=== PATIENT | female | born 1930 | race Hispanic/Latino ===

== ENCOUNTER 2018-01-01 11:59 | Outpatient (CLI) | payer SELFPAY | END 2018-01-01 12:00 | disposition home or self-care (01) | LOC: BICRAD 11:59 | PROVIDERS: ATTEND Nurse Practitioner Family | DX: R05 Cough (principal); M19.012 Primary osteoarthritis, left shoulder; M19.011 Primary osteoarthritis, right shoulder | CPT/HCPCS: 71046 ==

== ENCOUNTER 2018-01-26 09:41 | Outpatient (CLI) | payer OTHER | END 2018-01-26 09:42 | disposition home or self-care (01) | LOC: BICRAD 09:41 | PROVIDERS: ATTEND Nurse Practitioner Family | DX: R91.8 Other nonspecific abnormal finding of lung field (principal) | CPT/HCPCS: 71046 ==

== ENCOUNTER 2018-03-04 00:24 | Inpatient (IN) | payer SELFPAY ==
[2018-03-04] MEDS ORDERED: Lorazepam 2 MG/ML VIAL ONE (01:04)
[2018-03-04 01:09] LABS: #Basophils 0.1 thou/uL (0.0-0.2); #Eosinphils 0.1 thou/uL (0.0-0.7); #Lymphocytes 3.4 thou/uL (1.20-3.40); #Monocytes 1.1 thou/uL (0.11-0.59); #Neutrophils 10.7 thou/uL (1.40-6.50); %Basophils 0.4 % (0.0-1.0); %Eosinophils 0.7 % (0.0-10.0); %Lymphocytes 22.4 % (21.0-51.0); %Monocytes 6.8 % (0.0-10.0); %Neutrophils 69.7 % (42.0-75.0); Hemoglobin 10.4 g/dL (12.0-16.0); Mean Corpuscular HGB CONC 32.8 g/dL (32.0-36.0); Mean Corpuscular Hemoglobin 31.9 pg (27.0-31.0); Mean Corpuscular Volume 97.4 fl (81.0-99.0); Mean Platelet Volume 7.2 fL (7.4-10.4); Platelet Count 279 thou/uL (130-400); RBC Distribution Width 12.1 % (11.5-14.5); Red Blood Cell (RBC) Count 3.26 mill/uL (4.20-5.40); White Blood Cell (WBC) Count 15.3 thou/uL (4.8-10.8)
[2018-03-04 03:17] LABS: Reticulocyte Count 1.4 % (0.5-1.5)
[2018-03-04 03:26] LABS: Iron Binding Capacity, Total 228 mcg/dL (265-497)
[2018-03-04 03:27] LABS: Iron 53 ug/dL (50-170)
[2018-03-04] MEDS ORDERED: Dextrose 5 % And 0.9 % NaCl 1,000 ML IV SCH (04:45)
[2018-03-04 04:51] VITALS: BMI 29.6
[2018-03-04 08:26] LABS: Hemoglobin 7.5 g/dL (12.0-16.0); Platelet Count 197 thou/uL (130-400)
[2018-03-04] MEDS ORDERED: Prevnar 13-Val Conj/PF 0.5 ML SYRINGE IM ONE (09:00)
[2018-03-04] MEDS ORDERED: Pantoprazole 40 MG VIAL IVP SCH (09:00)
[2018-03-04] MEDS ORDERED: Acetaminophen 325 MG TAB PO PRN (09:03)
[2018-03-04] MEDS ORDERED: Acetaminophen 650 MG Suppository PR PRN (09:03)
--- NOTE | 2018-03-04 09:34 | RAD ---
FRONTAL VIEW ABDOMEN/KUB: Date: 03/04/18 INDICATION: Evaluation of nasogastric tube placement. FINDINGS: There is a catheter traversing the midline of the chest and terminating at the medial left upper abdo men. This terminates at the expected region of the medial portion of the gastric fundus. Slight advan cement would be beneficial. There is a nonspecific bowel gas pattern. IMPRESSION: Nasogastric tube terminating at the expected region of the medial gastric fundus. Side port likely pr ojects at distal esophagus. Recommend advancement and imaging follow-up. POS: MARKELL
[2018-03-04] MEDS: Pantoprazole 80 MG in Sodium Chloride 0.9% 100 ML IVP SCH ×2 (09:46→20:39)
[2018-03-04] MEDS: Dextrose 5 % And 0.9 % NaCl 1,000 ML IV SCH (09:47)
[2018-03-04 09:48] LABS: Hemoglobin 7.1 g/dL (12.0-16.0)
--- NOTE | 2018-03-04 11:26 | HP ---
REASON FOR ADMISSION: Gastrointestinal bleed, hematemesis, acute blood loss anemia. HISTORY OF PRESENTING ILLNESS: Please note majority of this history is obtained by talking to patient's son, daughter and grandson here at bedside. The patient apparently was complaining of abdominal pain, especially in the epigastric area from last two days. She had a lot of discomfort yesterday afternoon. The family prepared a home remedy which consisted of baking soda, lemon and water, which was given for her in the afternoon. Around 9:00 p.m. yesterday, she threw up a large amount of blood. The patient was taken to [facility] from where she was transferred here. On arrival here, patient has had a large bowel movement this morning. This was bloody per staff. Her initial hemoglobin at midnight was 10 grams and at 8:00 a.m. it is 7.5 grams now. Also, patient's systolic blood pressures are in the 90s at present. She is not complaining of any shortness of breath, chest pain, palpitations or PND. Patient responds well in Turkish. The patient admits to taking two tablets of Advil on Friday and 2 tablets of Aleve on Friday for chronic osteoarthritis. She takes these every 3-4 days or so. She also takes Zofran. The family at bedside mentions that for almost a month now, she has had loss of appetite. Per family, she has nauseated feeling off and on and has been taking Zofran p.r.n. basis. Also, a month back patient had back to back pneumonia and took antibiotics for 5 days. PAST MEDICAL AND SURGICAL HISTORY: Early dementia, right ankle surgery, had pneumonia a month back and took antibiotics for 5 days, osteoarthritis, questionable dyslipidemia, not on any medications. CURRENT MEDICATIONS: None. ALLERGIES: No known drug allergies. PERSONAL HISTORY: Does not abuse alcohol or drugs. No history of smoking. Lives with her daughter. She ambulates with a walker. FAMILY HISTORY: Mother at the age of 65 years from unknown cause. Father lived up to 90 and of old age. REVIEW OF SYSTEMS: The following complete review of systems was negative, unless otherwise mentioned in the HPI or below: Constitutional: Weight loss or gain, ability to conduct usual activities. Skin: Rash, itching. Eyes: Double vision, pain. ENT/Mouth: Nose bleeding, neck stiffness, pain, tenderness. Cardiovascular: Palpitations, dyspnea on exertion, orthopnea. Respiratory: Shortness of breath, wheezing, cough, hemoptysis, fever or night sweats. Gastrointestinal: Poor appetite, abdominal pain, heartburn, nausea, vomiting, constipation, or diarrhea. Genitourinary: Urgency, frequency, dysuria, nocturia. Musculoskeletal: Pain, swelling. Neurologic/Psychiatric: Anxiety, depression. Allergy/Immunologic: Skin rash, bleeding tendency. PHYSICAL EXAMINATION: GENERAL: The patient is an 87-year-old female who is currently not in any acute distress. VITAL SIGNS: Blood pressure 142/67, pulse 120 per minute on arrival, respiratory rate 20 per minute, temperature 97.5 degrees Fahrenheit, and saturating 98% on room air. NECK: Supple, no elevated JVD. EYES: Extraocular muscles intact. Pupils reacting to light. ORAL CAVITY: Mucous membranes are dry. No exudates or congestion. CARDIOVASCULAR SYSTEM: S1, S2 heard. Regular rhythm. RESPIRATORY SYSTEM: Air entry 1+ bilateral. Scattered rhonchi plus no rales. ABDOMEN: Soft, bowel sounds heard. No tenderness, rigidity or guarding. EXTREMITIES: No peripheral edema or calf tenderness. VASCULAR SYSTEM: Peripheral pulses 1+ bilateral, no ischemic ulcerations or gangrene. CENTRAL NERVOUS SYSTEM: No gross focal deficits seen. The patient moves all 4 extremities. PSYCHIATRIC SYSTEM: No obvious hallucinations or delusions. IMAGING DATA AND LABORATORY DATA: EKG done shows normal sinus rhythm at 97 beats per minute with poor R-wave progression. Stool occult blood is positive. Serum iron is 53, ferritin 200, H&H is 10 and 31 at 12:00 midnight and 7.5 and 23 at 8:00 a.m., platelet count 279. White count of 15, PT/INR 14 and 1.1, PTT 27, BUN 40, creatinine 0.6, serum glucose 159, AST 53, ALT 49, alkaline phosphatase 283, and albumin is 3.1. CLINICAL IMPRESSION AND PLAN: The patient will be admitted to [facility] for acute blood loss anemia, gastrointestinal bleed with hematemesis. She will be on Protonix drip, D5 NS at 50 mL per hour. The patient is kept n.p.o. for possible upper endoscopy this morning. Serial H&H will be obtained. The patient has had significant drop in her hemoglobin and is slightly hypotensive at present and we will give 1 unit of packed cell transfusion given her age of 87 years to prevent adverse events. Given full updates to patient and her family here at bedside. Code status is FULL. Power of tromper is her daughter , Ms. Powers. We will continue to closely monitor her in IMCU. Serial H&H will be obtained and if needed, she will be transfused to maintain hemoglobin of 7 grams as long as she is hemodynamically stable. PATRICIAD
--- NOTE | 2018-03-04 14:08 | CON ---
DATE OF CONSULTATION: 03/04/2018 CHIEF COMPLAINT: Hematemesis. HISTORY: Mrs. Manning is an 87-year-old female from [place], who was brought to the ER last night af ter having an episode of hematemesis at home. Patient is Macanese-speaking only, and translation was obtained through the grandson. Reportedly, over the last month, she has been feeling anorexic with p oor intake. She also has a complaint of having nonspecific, non-localizing abdominal pain. Despite having reduced appetite, she has not lost any weight. Over the last 2 weeks, she began having episod ic nausea. Last night, she had an acute onset of hematemesis at 9:00 p.m. characterized as mostly re d blood along with clots and some small coffee ground according to the daughter. Currently, she kenney es having abdominal pain. Since admission, she had an episode of bowel movement to consist of old bl ood and clots. Currently, she denies having abdominal pain or any nausea. Her vitals have remained stable. However, her blood count showed a drop in hemoglobin from 10.5 down to 7.5. Patient has not had any previous GI bleed. According to the grandson, she has been given Advil and A leve periodically for arthritic pain. Amount of usage is unknown. PAST MEDICAL HISTORY: 1. No medical illness such as hypertension or diabetes. 2. Right foot surgery many years ago from a broken foot, otherwise no other surgery. MEDICATIONS AT HOME: Include, 1. Ondansetron 4 mg as needed, given by [facility] within the last month. 2. No other prescription medication. ALLERGIES: None. SOCIAL HISTORY: The patient lives with her daughter and son in [place]. She has no tobacco or alco hol usage. FAMILY HISTORY: No known family history of GI problem, liver disease, or GI malignancy. REVIEW OF SYSTEMS: Grandson reports that patient has had chronic dizziness for many years. Otherwis e, a 10-point review of systems did not show any pertinent positive or negative. PHYSICAL EXAMINATION: VITAL SIGNS: Temperature is 97.4, blood pressure 101/39, pulse of 87. GENERAL: She is alert, does not appear in any distress. HEENT EXAM: Shows anicteric sclerae. Oropharynx clear. NECK EXAM: Supple, no adenopathy. CARDIOVASCULAR EXAM: Shows normal S1 and S2, regular rate and rhythm. CHEST Exam: Poor excursion. Bilateral breath sounds, no adventitious sounds. ABDOMEN: Mildly protuberant. No palpable mass or organomegaly. She has good bowel sounds. No tend erness. EXTREMITIES EXAM: Shows no edema. LABORATORY DATA: INR is 1.1, PTT 27.7. WBC is 15.3; hemoglobin on admission was 10.4, currently is 7.5; platelet count of 197. Electrolytes within normal range, creatinine 0.67, BUN of 40, bilirubin 0.8, AST 53, ALT 49. ASSESSMENT: 1. Evidence of acute upper gastrointestinal bleed, characterized as hematemesis last night and episo de of hematochezia overnight with 2 gram salt in hemoglobin. She remains hemodynamically stable. Encinas spect peptic ulcer disease. No physical stigmata of cirrhosis and the risk factor for chronic liver disease 2. Lower gastrointestinal bleed is unlikely. 3. Anemia of acute blood loss. PLAN: 1. Continue IV Protonix 40 mg every day, as ordered. 2. Start transfusion. 3. Upper endoscopy to elucidate source of bleeding to control if necessary. Indications of procedure were discussed with family. All questions answered. We will proceed.
--- NOTE | 2018-03-04 14:21 | OP ---
DATE OF PROCEDURE: 03/04/2018 PROCEDURE: Esophagogastroduodenoscopy to control hemorrhage. PHYSICIAN: Javier Ford M.D. ANESTHESIA: Pain medications given by Anesthesiology Department. PREPROCEDURE DIAGNOSES: 1. Upper gastrointestinal bleed characterized as hematemesis and hematochezia. 2. Anemia of acute blood loss. POSTPROCEDURE DIAGNOSES: A 1.5 x 2 cm duodenal bulb ulcer with visible vessel and bleeding from dist al edge. PROCEDURE IN DETAIL: A written consent was obtained prior to procedure. After adequate sedation, th e forward-viewing endoscope was advanced down the stomach under direct vision. The stomach was irrig ated and old blood was washed out. The antrum, body, fundus, and cardia appeared normal. No source of bleeding was identified from the stomach. Upon entering the pylorus, copious fresh blood was seen along with clots. A 1.5 x 2 cm duodenal bulb ulcer was seen near the second portion. There was a v isible vessel with oozing of fresh blood from the distal edge. A total of 4 mL of 1:10,000 epinephri ne solution was injected around the ulcer base. Using 10-[place] BICAP cautery, cauterization was per formed over the crater including the vessel. Also, the cauterization was performed in the distal edg e where the bleeding was occurred. There was good hemostasis. The second portion of duodenum appear ed normal. The inspection of the esophagus was made on withdrawal. The esophagus appeared normal. The GE junction was located at 40 cm. ASSESSMENT: Bleeding duodenal bulb ulcer with visible vessel, status post epinephrine injection and BICAP cauterization with good hemostasis. PLAN: 1. Continue with pantoprazole 40 mg every day. 2. Serial blood count monitoring. 3. We will check H. pylori serology.
[2018-03-04] MEDS ORDERED: Lidocaine 1% PF 5 ML VIAL ONE (15:06)
[2018-03-04] MEDS ORDERED: PHENYLEPHRINE-NS 100 MCG/ML 10 ML SYRINGE ONE (15:06)
[2018-03-04] MEDS ORDERED: PROPOFOL 200 MG/20 ML VIAL ONE (15:06)
[2018-03-04 15:31] LABS: Hemoglobin 8.2 g/dL (12.0-16.0)
[2018-03-04 21:28] LABS: Hemoglobin 7.1 g/dL (12.0-16.0)
[2018-03-05] MEDS ORDERED: Diltiazem 125 MG in Sodium Chloride 0.9% 100 ML IVPB SCH (00:45)
--- NOTE | 2018-03-05 00:46 | PDOC.EVN ---
Event Note - Event Note Event Note: RN called - Pt in Afib with RVR. Will start Cardizem drip. Update - BP dropped with Cardizem. Will try Digoxin.
[2018-03-05] MEDS ORDERED: Digoxin 0.5 MG/2 ML AMP SLOW IVP SCH ×2 (01:45→11:45)
--- NOTE | 2018-03-05 04:52 | CON ---
DATE OF CONSULTATION: 03/04/2018 HISTORY OF PRESENT ILLNESS: Ms. Manning is an 87-year-old female. She presented with gastrointestinal bleeding. She was seen by Dr. Ford and underwent endoscopy revealing a 1.5 x 2 cm duodenal bulb ulcer with visible vessel. This was cauterized. She had no external signs of bleeding since she is in the Intermediate Care Unit, hence the consultation. PAST MEDICAL HISTORY: Remarkable for; 1. Dementia. 2. History of pneumonia. 3. Degenerative arthritis. 4. History of lipid disorder. 5. History of ankle surgery in the past. SOCIAL HISTORY: She is a nonsmoker, nondrinker. She does not use drugs. She lives with her daughter. She is ambulatory. She does have a history of dementia. FAMILY HISTORY: Non contributory ALLERGIES: She has no drug allergies. MEDICATIONS: She is on no medications prior to admission. REVIEW OF SYSTEMS: Not accurately obtainable because of her dementia. She told me she felt fine. PHYSICAL EXAMINATION: VITAL SIGNS: She is afebrile, heart rate 94, respiratory rate is 22, oximetry is 100% on room air, blood pressure 103/53. HEENT: Pupils are equal. Sclerae are anicteric. NECK: Supple. GENERAL: Her appearance is appropriate for age. LUNGS: Clear. HEART: Regular rhythm. ABDOMEN: Nontender. EXTREMITIES: Without clubbing, cyanosis, or edema. She moves all 4 extremities equally. NEUROLOGIC: Grossly nonfocal. LABORATORY DATA: Hemoglobin was 10.4 at midnight was 7.5 at 8:00 this morning and its then 7.1, 8.2 and 7.1 with serial hemoglobins throughout the day. IMPRESSION: Gastrointestinal blood loss secondary to duodenal bulb ulcer with visible vessel. Hopefully, her bleeding has stabilized. If she does well overnight, she could be transferred out of the Critical Care Unit. CODE STATUS: Because of her age definitely needs to be addressed. This is a 50-minute consult with greater than 50% of the time which was spent on the unit coordinating care. LEIGHTON
[2018-03-05 05:11] LABS: Hemoglobin 6.7 g/dL (12.0-16.0); Platelet Count 167 thou/uL (130-400)
[2018-03-05 05:29] LABS: ALT (SGPT) 24 U/L (8-55); AST (SGOT) 25 U/L (5-34); Albumin 2.4 g/dL (3.4-4.8); Alkaline Phosphatase 153 U/L (40-150); Anion Gap 9 mmol/L (10-20); BUN (Urea Nitrogen) 32 mg/dL (9.8-20.1); Bilirubin, Total 0.4 mg/dL (0.2-1.2); Calc. Creatinine Clearance 68 mL/min (70-130); Calcium 7.3 mg/dL (7.8-10.44); Carbon Dioxide 21 mmol/L (23-31); Chloride 111 mmol/L (98-107); Estimated GFR-MDRD 83; Globulin 2.3 g/dL (2.4-3.5); Glucose 153 mg/dL (83-110); Magnesium 1.9 mg/dL (1.6-2.6); Phosphorus 3.2 mg/dL (2.3-4.7); Protein, Total 4.7 g/dL (6.0-8.3); Sodium 137 mmol/L (136-145)
[2018-03-05] MEDS ORDERED: Ondansetron HCl/PF 4 MG/2 ML Vial IVP PRN (09:51)
[2018-03-05] MEDS ORDERED: Promethazine HCl 25 MG/ML VIAL IM PRN (09:51)
[2018-03-05] MEDS ORDERED: Promethazine HCl 25 MG/ML VIAL SLOW IVP PRN (09:51)
--- NOTE | 2018-03-05 10:03 | OP ---
DATE OF PROCEDURE: 03/05/2018 PROCEDURE: Esophagogastroduodenoscopy. PREOPERATIVE DIAGNOSIS: Gastrointestinal bleed. Ms. Manning passed liquidy red stool this morning and had another drop in her hemoglobin. Follow up E GD is performed to evaluate for active bleeding from the ulcer that was cauterized yesterday. PROCEDURE IN DETAIL: Informed consent was obtained. The patient was sedated with total intravenous anesthesia. The bite block was placed and the endoscope was advanced easily to the second portion of the duodenum and retroflexion was performed in the stomach. The esophagus had a slight ring in the distal esophagus. There was a small hiatal hernia present. The stomach had a small shallow ulcer in the antrum just proximal to the pylorus. There was a large ulcer on the inferior wall of the first portion of the duodenum which is a site that was cauterized by Dr. Ford yesterday. There is no visib le vessel to indicate repeat intervention. There is no active bleeding. There is no blood in the st omach or duodenum to indicate recent bleeding. There are multiple flat red spots; however, again too extensive in an area to just cauterize diffusely and no specific area to indicate that it would be a higher risk of bleeding than any of the others. Overall appears to be healing. IMPRESSION: 1. Large ulcer in the inferior wall of the first portion of the duodenum. There is no focal vessel to cauterize. There is no active bleeding and no blood in the stomach or small bowel to indicate imm ediate recent bleed. The ulcer appears to be healing overall. 2. Small shallow ulcer just proximal to the pylorus. 3. Small hiatal hernia with a slight ring in the distal esophagus. RECOMMENDATIONS: 1. Continue proton pump inhibitor drip for 72 hours. 2. Clear liquid diet today. If she has no further overt bleeding and her hemoglobin is stable tomor row, then we can advance her diet further.
--- NOTE | 2018-03-05 11:07 | PDOC.PN ---
- Subjective Encounter Start Date: 03/05/18 Encounter Start Time: 10:20 Subjective: no abd pain or nausea -: had a large liq bloody stool this am - Objective Resuscitation Status: Resuscitation Status FULL:Full Resuscitation MAR Reviewed: Yes Vital Signs & Weight: Vital Signs (12 hours) Temp Pulse Pulse Resp BP BP Pulse Ox 03/05/18 07:45 98.8 F 97 20 102/41 L 100 03/05/18 07:06 97.9 F 100 20 99/42 L 100 03/05/18 04:17 88/49 L 03/05/18 03:46 98.0 F 133 H 20 100 03/05/18 03:05 83/46 L 03/05/18 02:07 160 H 81/73 L 03/05/18 01:52 108 H 03/05/18 01:33 88/58 L 03/04/18 23:44 98.4 F 108 H 21 H 121/55 L 100 Weight Weight 163 lb 3.2 oz I&O: 03/04/18 03/05/18 03/06/18 06:59 06:59 06:59 Intake Total 150 350 0 Output Total 400 Balance -250 350 0 Result Diagrams: 03/05/18 04:02 03/05/18 04:02 Phys Exam - Physical Examination HEENT: PERRLA, sclera anicteric Neck: no JVD, supple Respiratory: no wheezing, no rales Cardiovascular: RRR, no significant murmur Gastrointestinal: soft, non-tender, positive bowel sounds Musculoskeletal: no edema, pulses present Neurological: non-focal, moves all 4 limbs Dx/Plan (1) GI bleed Code(s): K92.2 - GASTROINTESTINAL HEMORRHAGE, UNSPECIFIED Status: Acute Qualifiers: GI bleed type/associated pathology: duodenal ulcer Qualified Code(s): K26.4 - Chronic or unspecified duodenal ulcer with hemorrhage (2) Duodenal ulcer Status: Acute (3) Acute blood loss anemia Code(s): D62 - ACUTE POSTHEMORRHAGIC ANEMIA Status: Acute (4) Afib Code(s): I48.91 - UNSPECIFIED ATRIAL FIBRILLATION Status: Acute Qualifiers: Atrial fibrillation type: paroxysmal Qualified Code(s): I48.0 - Paroxysmal atrial fibrillation (5) Dyslipidemia Code(s): E78.5 - HYPERLIPIDEMIA, UNSPECIFIED Status: Chronic (6) Dementia Code(s): F03.90 - UNSPECIFIED DEMENTIA WITHOUT BEHAVIORAL DISTURBANCE Status: Chronic Qualifiers: Dementia type: Alzheimer's disease Alzheimer's disease onset: unspecified onset Dementia behavioral disturbance: without behavioral disturbance Qualified Code(s): G30.9 - Alzheimer's disease, unspecified; F02.80 - Dementia in other diseases classified elsewhere without behavioral disturbance; F02.80 - Dementia in other diseases classified elsewhere without behavioral disturbance; F02.80 - Dementia in other diseases classified elsewhere without behavioral disturbance - Plan to recieve 2 nd unit of prbc today, Hb of 6.7g this am -: repeat egd no active bleeding -: may give lasix if she get vol overloaded -: d/w son at bedside, he will d/w his sister about code status -: afib in sinus now, echo * . continue protonix drip x 72hrs per GI advice. Review of Systems - Medications/Allergies Allergies/Adverse Reactions: Allergies Allergy/AdvReac Type Severity Reaction Status Date / Time No Known Drug Allergies Allergy Verified 03/04/18 05:31 Medications: Current Medications Acetaminophen (Tylenol) 650 mg PO Q4H PRN PRN Reason: Headache/Fever or Pain Acetaminophen (Tylenol) 650 mg ND Q4H PRN PRN Reason: Headache/Fever or Pain Fentanyl (Pacu-Sublimaze) 50 mcg SLOW IVP Q10MIN PRN PRN Reason: Moderate to Severe Pain (6-10) Stop: 03/05/18 12:51 Dextrose/Sodium Chloride (D5 0.9% Ns) 1,000 mls @ 50 mls/hr IV .Q20H LINN Last Admin: 03/05/18 00:00 Dose: 1,000 mls Pantoprazole Sodium 80 mg/ (Sodium Chloride) 100 mls @ 10 mls/hr IVP INF LINN Last Admin: 03/04/18 20:39 Dose: 100 mls Diltiazem HCl 125 mg/ Sodium (Chloride) 125 mls @ 5 mls/hr IVPB INF LINN; 5 MG/ HR PRN Reason: Protocol Last Admin: 03/05/18 01:13 Dose: 125 mls Ondansetron HCl (Pacu-Zofran) 4 mg IVP ONE PRN PRN Reason: Nausea/Vomiting Stop: 03/05/18 12:51 Promethazine HCl (Pacu-Phenergan) 6.25 mg SLOW IVP ONE PRN PRN Reason: Nausea/Vomiting Stop: 03/05/18 12:51 Promethazine HCl (Pacu-Phenergan) 6.25 mg IM ONE PRN PRN Reason: Nausea/Vomiting Stop: 03/05/18 12:51 Sodium Chloride (Flush - Normal Saline) 10 ml IVF PRN PRN PRN Reason: Saline Flush
--- NOTE | 2018-03-05 12:22 | CON ---
DATE OF CONSULTATION: 03/05/2018 INDICATION FOR CONSULTATION: This is an 87-year-old female with episode of atrial fibrillation. HISTORY OF PRESENT ILLNESS: This very pleasant 87-year-old female was admitted after a large GI blee d. Her hemoglobin dropped from 10.4 to 6.7. She was having nausea, vomiting, hematemesis and also h ematochezia. She underwent an EGD and apparently had cauterization of an ulcer, was taken back down earlier again today for a possible repeat bleed, but no significant bleeding was noted in the gastric segments and also there was no further bleeding noted. She has had no previous cardiac history. Ea rlier this morning, she developed atrial fibrillation with rapid ventricular response, was given dilt iazem. The pressure decreased and this was stopped and then she was placed on digoxin, was given 1.2 5 IV of digoxin and then converted back to sinus rhythm and has remained in sinus rhythm. At time sh e was in atrial fibrillation she did have some EKG changes in the inferior lateral leads compatible w ith possible ischemia and given her age, it would not be surprising if she did not have coronary dise ase. She was unable to tolerate the diltiazem, but this may be due to volume loss with the severe bl ood loss with a hemoglobin of 6.7, but she also had EKG changes which also could be due to the severe anemia or due to underlying coronary artery disease. At this time until and echo is still pending a nd we will need to see the echocardiogram prior to initiating other antiarrhythmic medications, but c ertainly a low dose beta melvin could be in order. PAST MEDICAL HISTORY: Significant for right ankle fracture about 10 years ago and she has dyslipidem ia. She denies any history of hypertension or diabetes. No early family history of heart disease. SOCIAL HISTORY: She is a . She has no alcohol or tobacco abuse. She had 5 children. ALLERGIES: No known drug allergies. REVIEW OF SYSTEMS: According to the family. She walks with a walker, otherwise she has been extreme ly healthy and takes minimal medications. Denied any HEENT problems. GI, or pulmonary problems or neurological problems. PHYSICAL EXAMINATION: GENERAL: Reveals an elderly female. VITAL SIGNS: Blood pressure 129/46, heart rate is in the 90s. She is in sinus rhythm at this time. She is afebrile. HEENT: Shows the head to be normocephalic and atraumatic. Carotid pulses are present. I did not he ar any significant bruits. CHEST: Clear to auscultation. There were no rales, rhonchi or wheezing. CARDIOVASCULAR: Exam at this time reveals a regular rate and rhythm. I did not hear any significant murmurs, heaves, thrills, bruits or rubs. ABDOMEN: Soft, positive bowel sounds are present. EXTREMITIES: Showed no clubbing, cyanosis or edema. Pedal pulses are difficult to palpate, but popl iteal pulses are normal. SKIN: Warm and dry. NEUROLOGIC: The patient appears to be intact. She does speak only Danish, but her grandson was luis ilable and was present in the room today and he speaks very fluent Georgian and he was used as a trans lator. LABORATORY: Shows the hemoglobin on admission to be 10.4 and then this morning at 4:[address] opped down to 6.7 as well as hematocrit 31.8 on admission, dropped down to 20.3. WBC was 15.3 and a platelet count was 167. Her sodium was 137, BUN 32, creatinine 0.67, blood sugar was 153. Liver fun ction showed an alkaline phosphatase of 153. IMPRESSION: 1. New onset of atrial fibrillation was likely brought on by stress. She may have underlying garcia ry artery disease due to EKG changes that were noted. However, she could have the EKG changes simply due to the anemia that she has suffered with the tachycardia associated and does not necessarily ind icate coronary artery disease, but given her age, this may be a possibility. We will continue to fol low this. She is not a candidate for bypass or for any type of intervention at this time. When she becomes more stable, we can always consider stress testing in this lady if she is agreeable to underg o further evaluation should the stress test be abnormal. She denies any chest pain. She has not had any problems in the past and may do quite well. As far as her atrial fibrillation, she is on digoxi n at this time and we can consider starting her on low dose beta melvin now that she is starting p.o . medications or low dose of diltiazem and hopefully will try to avoid other more potent antiarrhythm ic medications. 2. Elevated blood sugar. This may be due to IV. However, she may be a diabetic, which has been und iagnosed. This will be dealt with by the primary care service. 3. Anemia. We will also need to continue to follow this, would hope for hemoglobin of around 10. S he may need further transfusions in order to at least maintain a hemoglobin of 8. 4. Hyperlipidemia. She can resume her statin medications as soon as she is taking p.o. I will be more than happy to continue to follow the patient with you, but at this time, she appears t o be stable from a cardiac standpoint.
[2018-03-05] MEDS: Digoxin 0.5 MG/2 ML AMP SLOW IVP SCH ×3 (12:48→23:04)
[2018-03-05] MEDS ORDERED: Lidocaine 1% PF 5 ML VIAL ONE (14:31)
[2018-03-05] MEDS ORDERED: PROPOFOL 200 MG/20 ML VIAL ONE (14:31)
[2018-03-05 20:51] LABS: Hemoglobin 8.2 g/dL (12.0-16.0)
[2018-03-05] MEDS: Dextrose 5 % And 0.9 % NaCl 1,000 ML IV SCH ×2 (21:45)
[2018-03-06] MEDS: Pantoprazole 80 MG in Sodium Chloride 0.9% 100 ML IVP SCH ×2 (04:05→15:14)
[2018-03-06] MEDS ORDERED: Diltiazem 125 MG in Sodium Chloride 0.9% 100 ML IVPB SCH (04:45)
[2018-03-06 06:12] LABS: Hemoglobin 8.1 g/dL (12.0-16.0); Platelet Count 157 thou/uL (130-400)
[2018-03-06 06:42] LABS: Anion Gap 6 mmol/L (10-20); BUN (Urea Nitrogen) 15 mg/dL (9.8-20.1); Calc. Creatinine Clearance 70 mL/min (70-130); Calcium 7.6 mg/dL (7.8-10.44); Carbon Dioxide 24 mmol/L (23-31); Chloride 112 mmol/L (98-107); Estimated GFR-MDRD 87; Glucose 129 mg/dL (83-110); Magnesium 1.8 mg/dL (1.6-2.6); Phosphorus 3.4 mg/dL (2.3-4.7); Potassium 3.5 mmol/L (3.5-5.1); Sodium 138 mmol/L (136-145)
[2018-03-06] MEDS: Digoxin 0.125 MG TAB PO SCH (08:15)
--- NOTE | 2018-03-06 12:02 | PDOC.CTH ---
Cardiology Progress Note - Subjective The pt seen and examined. No overnight events. No cardiac complaints. She speaks Ukrainian only. Daughter is at bedside. - Objective Vital Signs Temp Pulse Resp BP Pulse Ox 03/06/18 08:15 83 03/06/18 08:00 98.9 F 83 24 H 99 03/06/18 07:00 98.9 F 124 H 24 H 113/71 98 03/06/18 03:38 98.2 F 70 16 100/36 L 96 Weight 163 lb 14.4 oz 03/05/18 03/06/18 03/07/18 06:59 06:59 06:59 Intake Total 350 1940 480 Balance 350 1940 480 - Physical Examination Lungs: CTA Heart: RRR Abdomen: soft Extremities: other: (No edema) - Telemetry Telemetry Rhythm: SR 70s - Labs Result Diagrams: 03/06/18 05:45 03/06/18 05:45 - Assessment/Plan 1. Afib and Aflutter with RVR - Back to AFib and new-onset of AFlutter from 0400 -0700 on 03/06/18. The pt converted back to SR with Diltiazem 2.5mg/h. On Digoxin 0.125mg PO daily. Not on any OAC or Lovenox due to Hx of GI bleed. EP consult was ordered for Aflutter. 2. GI bleed 2ndary to duodenal ulcer - managed by GI 3. Anemia 2ndary to GI bleed - Hgb 8.1 from 6.7 after 2 units of PRBC Tx. 4. Dementia - Family at bedside MAR reviewed Review of Systems - Review of Systems Constitutional: reports: no symptoms reported EENTM: reports: no symptoms reported Respiratory: reports: no symptoms reported Cardiac (ROS): reports: no symptoms reported ABD/GI: reports: no symptoms reported : reports: no symptoms reported Musculoskeletal: reports: no symptoms reported
--- NOTE | 2018-03-06 15:38 | PDOC.PN ---
- Subjective Encounter Start Date: 03/06/18 Encounter Start Time: 11:25 Subjective: awake, no sob or palp -: no charlene bleeding or hematemesis - Objective Resuscitation Status: Resuscitation Status FULL:Full Resuscitation MAR Reviewed: Yes Vital Signs & Weight: Vital Signs (12 hours) Temp Pulse Resp BP Pulse Ox 03/06/18 12:17 98.0 F 76 20 105/50 L 03/06/18 08:15 83 03/06/18 08:00 98.9 F 83 24 H 99 03/06/18 07:00 98.9 F 124 H 24 H 113/71 98 03/06/18 03:38 98.2 F 70 16 100/36 L 96 Weight Weight 163 lb 14.4 oz I&O: 03/05/18 03/06/18 03/07/18 06:59 06:59 06:59 Intake Total 350 1940 480 Balance 350 1940 480 Result Diagrams: 03/06/18 05:45 03/06/18 05:45 Phys Exam - Physical Examination HEENT: PERRLA, moist MMs Neck: no JVD, supple Respiratory: no wheezing, no rales Cardiovascular: RRR, no significant murmur Gastrointestinal: soft, non-tender, positive bowel sounds Musculoskeletal: no edema, pulses present Neurological: non-focal, moves all 4 limbs Psychiatric: normal affect, A&O x 3 Dx/Plan (1) GI bleed Code(s): K92.2 - GASTROINTESTINAL HEMORRHAGE, UNSPECIFIED Status: Acute Qualifiers: GI bleed type/associated pathology: duodenal ulcer Qualified Code(s): K26.4 - Chronic or unspecified duodenal ulcer with hemorrhage (2) Duodenal ulcer Status: Acute (3) Acute blood loss anemia Code(s): D62 - ACUTE POSTHEMORRHAGIC ANEMIA Status: Acute (4) Afib Code(s): I48.91 - UNSPECIFIED ATRIAL FIBRILLATION Status: Acute Qualifiers: Atrial fibrillation type: paroxysmal Qualified Code(s): I48.0 - Paroxysmal atrial fibrillation (5) Dyslipidemia Code(s): E78.5 - HYPERLIPIDEMIA, UNSPECIFIED Status: Chronic (6) Dementia Code(s): F03.90 - UNSPECIFIED DEMENTIA WITHOUT BEHAVIORAL DISTURBANCE Status: Chronic Qualifiers: Dementia type: Alzheimer's disease Alzheimer's disease onset: unspecified onset Dementia behavioral disturbance: without behavioral disturbance Qualified Code(s): G30.9 - Alzheimer's disease, unspecified; F02.80 - Dementia in other diseases classified elsewhere without behavioral disturbance; F02.80 - Dementia in other diseases classified elsewhere without behavioral disturbance; F02.80 - Dementia in other diseases classified elsewhere without behavioral disturbance - Plan on protonix drip -: digoxin low dose po, in sinus now -: h/h around 06/18 -: has dark stools from prior bleed, no fresh blood -: tx to tele, on clear liq diet, echo is pending * . Review of Systems - Medications/Allergies Allergies/Adverse Reactions: Allergies Allergy/AdvReac Type Severity Reaction Status Date / Time No Known Drug Allergies Allergy Verified 03/04/18 05:31 Medications: Current Medications Acetaminophen (Tylenol) 650 mg PO Q4H PRN PRN Reason: Headache/Fever or Pain Last Admin: 03/06/18 00:43 Dose: 650 mg Acetaminophen (Tylenol) 650 mg [place] Q4H PRN PRN Reason: Headache/Fever or Pain Digoxin (Lanoxin) 0.125 mg PO QAM [facility] Last Admin: 03/06/18 08:15 Dose: 0.125 mg Dextrose/Sodium Chloride (D5 0.9% Ns) 1,000 mls @ 50 mls/hr IV .Q20H [facility] Last Admin: 03/05/18 21:45 Dose: 1,000 mls Pantoprazole Sodium 80 mg/ (Sodium Chloride) 100 mls @ 10 mls/hr IVP INF [facility] Last Admin: 03/06/18 15:14 Dose: 100 mls Diltiazem HCl 125 mg/ Sodium (Chloride) 125 mls @ 0 mls/hr IVPB INF [facility]; Titrate PRN Reason: Protocol Sodium Chloride (Flush - Normal Saline) 10 ml IVF PRN PRN PRN Reason: Saline Flush
[2018-03-06] MEDS ORDERED: Diltiazem 125 MG in Sodium Chloride 0.9% 100 ML IVPB PRN (18:26)
[2018-03-06] MEDS: Dextrose 5 % And 0.9 % NaCl 1,000 ML IV SCH (18:28)
--- NOTE | 2018-03-06 18:30 | PRG ---
DATE OF SERVICE: 03/06/2018 SUBJECTIVE: Nursing reports that Ms. Manning did pass some dark red blood 3 times today. She has had no abdominal pain and is tolerated clear liquid diet. OBJECTIVE: VITAL SIGNS: Temperature 98.8, pulse 84, blood pressure 166/60. GENERAL: She is in no acute distress, awake and alert. LUNGS: Clear to auscultation bilaterally. HEART: S1, S2. ABDOMEN: Soft, nontender, nondistended. Bowel sounds are present. EXTREMITIES: No lower extremity edema. LABORATORY DATA: Hemoglobin is 8.1, stable from last night where she did get a couple of units betwe en yesterday morning and yesterday evening. IMPRESSION: Anemia of acute gastrointestinal blood loss secondary to a large duodenal ulcer. Follow up endoscopy yesterday showed no ongoing active bleeding or visible vessel to cauterize. Unfortunate ly, she still pass some red stools today, but her hemoglobin is stable. RECOMMENDATIONS: 1. Continue proton pump inhibitor drip for 72-hour course. 2. We will recheck her hemoglobin in the morning and transfuse as necessary.
--- NOTE | 2018-03-06 20:59 | CON ---
DICTATED BY: Katie Tovar, Nurse Practitioner dictating as scribe for Dr. Salazar Patel. DATE OF CONSULTATION: 03/06/2018 CONSULTING PHYSICIAN: Dr. Skye Sosa. REASON FOR CONSULTATION: Atrial arrhythmias. HISTORY OF PRESENT ILLNESS: Ms. Manning is a very pleasant elderly female, who was admitted for sever e GI bleed. She was having nausea and was vomiting blood, as well as noting blood in her stool. No hospitalized, her hemoglobin acutely dropped from 10.4-6.7. With EGD and ulcer was identified and ca uterized, but on further evaluation, no additional bleeding was found. She does not have a history s ignificant for cardiac problems. During the past hospitalization, she was found to be in atrial fibr illation with RVR and was given diltiazem; however, became hypertensive and prompting in the diltiaze m to be stopped and she was placed on 0.125 mg of diltiazem. She has stabilized since then and thuan smith has had a recurrence of her atrial fibrillation with RVR into atrial flutter with RVR, at wh ich point she was placed back on low dose diltiazem at 2.5 mg per hour. She has been tolerating this well, and is currently maintaining a sinus rhythm. She reports that she is feeling okay and she coppola s not have any heart racing, palpitations, chest pain, or pressure. She has not had any syncope or n ear syncopal episodes. She has not had any stroke or stroke-like symptoms. PAST MEDICAL HISTORY: 1. Dyslipidemia. 2. Right ankle fracture. FAMILY HISTORY: Negative for early onset coronary artery disease, sudden cardiac or arrhythmia s. SOCIAL HISTORY: Negative for alcohol, tobacco, or drug use. She is . She has 5 children. ALLERGIES: No known allergies. HOME MEDICATIONS: Zofran 4 mg as needed p.o. and meclizine 25 mg daily as needed. REVIEW OF SYSTEMS: Negative for heart racing, palpitation, chest pain, pressure, syncope, near synco pe, stroke, or stroke-like symptoms. She denies any heart failure symptoms including swelling of the extremities, shortness of breath, progressive fatigue or dyspnea on exertion. Seemed very healthy a nd independent, but does walk with a walker. Positive for recent nausea, vomiting, blood in her vomi t as well as blood in her stool, although this is not happened not currently a problem today. PHYSICAL EXAMINATION: VITAL SIGNS: Most recent vital signs 98.0 degrees Fahrenheit, pulse is 76, respirations are 20, oxyg en saturation 99% on room air, and blood pressure 105/50. GENERAL: This is an elderly female in no acute distress. She is hard of hearing, but alert and oriented and her affect is appropriate. She is normocephalic, atraumatic. Her thyroid is nonpa lpable. NECK: Carotid bruits are not auscultated. LUNGS: Clear to auscultation bilaterally without wheezes, crackles, or rhonchi. HEART: Currently regularly regular without murmur, rub, or gallop. PMI is nondisplaced. ABDOMEN: Benign, but positive bowel sounds throughout and no palpable masses or hepatosplenomegaly. EXTREMITIES: Warm and dry to touch without clubbing, cyanosis, or edema. NEUROLOGIC: Exam of cranial nerves II-XII is intact and nonfocal. Gait was not assessed. DATABASE: Review of telemetry and 12-lead EKGs. Which is currently maintaining normal sinus rhythm w ith controlled ventricular rates. However, episodes of atrial fibrillation with RVR as well as atypi gaurav atrial flutter with RVR had been seen. HEMATOLOGY: Hemoglobin 8.1, hematocrit 23.9, platelet count 157. Chemistry from today, sodium 138, potassium 3.5, chloride 112, carbon dioxide 24, BUN is 15, creatinine is 0.64, magnesium 1.8, and nba sphorus 3.4. Glucose has been elevated greater than 120 (no history of diabetes). IMPRESSION: 1. New onset of atrial fibrillation and atypical atrial flutter with RVR. Currently, maintaining a sinus rhythm on low dose diltiazem drip and low-dose digoxin. 2. Elevated CHADS-VASc score of 3 on the basis of advanced age, female gender, and possibly diabetes , making her score 3-4. Not a candidate for OSC given her acute bleed. 3. Acute anemia. 4. Hyperglycemia, possibly undiagnosed diabetes. RECOMMENDATIONS: We discussed atrial fibrillation and atrial flutter with the patient and her daught er, who is at bedside during the exam. We discussed the treatment for these arrhythmias as well as s troke prophylaxis and the risk for thrombus formation in the setting of atrial arrhythmias. At this time with her acute bleeding issues, she is not a candidate for oral anticoagulation and she is curre ntly maintaining sinus rhythm on her diltiazem and digoxin. Today we will be initiating sotalol 80 m g t.i.d. and watch her QTC prolongation with serial EKGs daily for the next 3 days. Alternatively, M ultaq could be considered; however, they have just apply for Medicaid and financially this may not be an option. If she does not tolerate sotalol and Multaq is not an option, which are more conservativ zoe with AV celine blocking agents with beta blockers or calcium channel blockers. Thank you for allowing us to participate in the care of this patient.
[2018-03-06] MEDS: Sotalol HCl 80 MG TAB PO SCH (21:02)
--- NOTE | 2018-03-06 22:19 | PRG ---
DATE OF SERVICE: 03/06/2018 SUBJECTIVE: Ms. Manning went back to the OR yesterday for another endoscopy. She dropped her hemoglobin significantly in the morning. The ulcer in the inferior wall, the first portion of duodenum, was not actively bleeding. Actually, the ulcer had an appearance of healing. No bleeding source was identified. She was transferred back to the intermediate care unit. She has been stable overnight and her hemoglobin stabilized. OBJECTIVE: VITAL SIGNS: She is afebrile, heart rate 84, respiratory rate is 18, oximetry is 98% on room air. LUNGS: Clear. HEART: Regular rhythm. ABDOMEN: Soft and nontender. EXTREMITIES: Without asymmetry. LABORATORY DATA: Hemoglobin 6.7 yesterday morning, it was 8.2 last night, it was 8.1 this morning. IMPRESSION AND PLAN: 1. Gastrointestinal bleeding, probably resolved. Plan, transfer out to telemetry. 2. Atrial fibrillation: Dictates transfer to telemetry for ongoing monitoring. She has absolute co ntraindication to anticoagulation. She appears to be stable for transfer.
[2018-03-07] MEDS: Pantoprazole 80 MG in Sodium Chloride 0.9% 100 ML IVP SCH (02:09)
[2018-03-07 07:41] LABS: #Basophils 0.1 thou/uL (0.0-0.2); #Eosinphils 0.4 thou/uL (0.0-0.7); #Lymphocytes 2.1 thou/uL (1.20-3.40); #Neutrophils 6.6 thou/uL (1.40-6.50); %Basophils 0.5 % (0.0-1.0); %Eosinophils 3.8 % (0.0-10.0); %Lymphocytes 20.7 % (21.0-51.0); %Monocytes 9.7 % (0.0-10.0); %Neutrophils 65.2 % (42.0-75.0); Hemoglobin 7.9 g/dL (12.0-16.0); Mean Corpuscular HGB CONC 33.6 g/dL (32.0-36.0); Mean Corpuscular Hemoglobin 31.8 pg (27.0-31.0); Mean Corpuscular Volume 94.6 fl (81.0-99.0); Mean Platelet Volume 7.2 fL (7.4-10.4); Platelet Count 186 thou/uL (130-400); RBC Distribution Width 14.8 % (11.5-14.5); Red Blood Cell (RBC) Count 2.47 mill/uL (4.20-5.40); White Blood Cell (WBC) Count 10.1 thou/uL (4.8-10.8)
[2018-03-07 08:02] LABS: Anion Gap 6 mmol/L (10-20); BUN (Urea Nitrogen) 13 mg/dL (9.8-20.1); Calc. Creatinine Clearance 71 mL/min (70-130); Calcium 7.5 mg/dL (7.8-10.44); Carbon Dioxide 26 mmol/L (23-31); Chloride 109 mmol/L (98-107); Estimated GFR-MDRD 89; Glucose 118 mg/dL (83-110); Potassium 3.2 mmol/L (3.5-5.1); Sodium 138 mmol/L (136-145)
[2018-03-07] MEDS: Digoxin 0.125 MG TAB PO SCH (10:00)
[2018-03-07] MEDS: Sotalol HCl 80 MG TAB PO SCH ×2 (10:00→21:21)
--- NOTE | 2018-03-07 11:19 | PDOC.PN ---
- Subjective Encounter Start Date: 03/07/18 Encounter Start Time: 09:30 Subjective: feels better, no active bleeding except for dark stool x1 this am -: no chest pain or palp -: no sob - Objective Resuscitation Status: Resuscitation Status FULL:Full Resuscitation MAR Reviewed: Yes Vital Signs & Weight: Vital Signs (12 hours) Temp Pulse Resp BP Pulse Ox 03/07/18 10:53 98.4 F 67 17 125/56 L 95 03/07/18 10:00 67 03/07/18 09:00 98.5 F 67 14 112/55 L 98 03/07/18 05:58 98.5 F 66 18 107/46 L 96 Weight Weight 163 lb 8 oz I&O: 03/06/18 03/07/18 03/08/18 06:59 06:59 06:59 Intake Total 1939 1845.2 Balance 1939 1845.2 Result Diagrams: 03/07/18 07:19 03/07/18 07:19 Phys Exam - Physical Examination HEENT: PERRLA, sclera anicteric Neck: no JVD, supple Respiratory: no wheezing, no rales Cardiovascular: RRR, no significant murmur Gastrointestinal: soft, non-tender, positive bowel sounds Musculoskeletal: no edema, pulses present Neurological: non-focal, moves all 4 limbs Psychiatric: normal affect, A&O x 3 Dx/Plan (1) GI bleed Code(s): K92.2 - GASTROINTESTINAL HEMORRHAGE, UNSPECIFIED Status: Acute Qualifiers: GI bleed type/associated pathology: duodenal ulcer Qualified Code(s): K26.4 - Chronic or unspecified duodenal ulcer with hemorrhage (2) Duodenal ulcer Status: Acute (3) Acute blood loss anemia Code(s): D62 - ACUTE POSTHEMORRHAGIC ANEMIA Status: Acute (4) Afib Code(s): I48.91 - UNSPECIFIED ATRIAL FIBRILLATION Status: Acute Qualifiers: Atrial fibrillation type: paroxysmal Qualified Code(s): I48.0 - Paroxysmal atrial fibrillation (5) Dyslipidemia Code(s): E78.5 - HYPERLIPIDEMIA, UNSPECIFIED Status: Chronic (6) Dementia Code(s): F03.90 - UNSPECIFIED DEMENTIA WITHOUT BEHAVIORAL DISTURBANCE Status: Chronic Qualifiers: Dementia type: Alzheimer's disease Alzheimer's disease onset: unspecified onset Dementia behavioral disturbance: without behavioral disturbance Qualified Code(s): G30.9 - Alzheimer's disease, unspecified; F02.80 - Dementia in other diseases classified elsewhere without behavioral disturbance; F02.80 - Dementia in other diseases classified elsewhere without behavioral disturbance; F02.80 - Dementia in other diseases classified elsewhere without behavioral disturbance - Plan is in sinus rhythm now -: h/h stable -: on protonix drip -: oral dig and sotalol 80mg bid -: to amb as tolerated, will finish her 72hr iv protonix in am. * . Review of Systems - Medications/Allergies Allergies/Adverse Reactions: Allergies Allergy/AdvReac Type Severity Reaction Status Date / Time No Known Drug Allergies Allergy Verified 03/04/18 05:31 Medications: Current Medications Acetaminophen (Tylenol) 650 mg PO Q4H PRN PRN Reason: Headache/Fever or Pain Last Admin: 03/06/18 00:43 Dose: 650 mg Acetaminophen (Tylenol) 650 mg [place] Q4H PRN PRN Reason: Headache/Fever or Pain Digoxin (Lanoxin) 0.125 mg PO QAM [facility] Last Admin: 03/07/18 10:00 Dose: 0.125 mg Dextrose/Sodium Chloride (D5 0.9% Ns) 1,000 mls @ 50 mls/hr IV .Q20H [facility] Last Admin: 03/06/18 18:28 Dose: 1,000 mls Pantoprazole Sodium 80 mg/ (Sodium Chloride) 100 mls @ 10 mls/hr IVP INF [facility] Last Admin: 03/07/18 02:09 Dose: 100 mls Diltiazem HCl 125 mg/ Sodium (Chloride) 125 mls @ 2.5 mls/hr IVPB INF PRN; Protocol PRN Reason: HR >120 BPM FOR 30 MIN Sodium Chloride (Flush - Normal Saline) 10 ml IVF PRN PRN PRN Reason: Saline Flush Sotalol HCl (Betapace) 80 mg PO BID [facility] Last Admin: 03/07/18 10:00 Dose: 80 mg
--- NOTE | 2018-03-07 12:41 | PDOC.CTH ---
Cardiology Progress Note - Subjective Resting, awakens easily. Iranian-speaking only, daughters at bedside. Denies chest pain, shortness of breath. No overnight events. - Objective Vital Signs Temp Pulse Resp BP Pulse Ox 03/07/18 10:53 98.4 F 67 17 125/56 L 95 03/07/18 10:00 67 03/07/18 09:00 98.4 F 67 17 112/55 L 95 03/07/18 05:58 98.5 F 66 18 107/46 L 96 Weight 163 lb 8 oz 03/06/18 03/07/18 03/08/18 06:59 06:59 06:59 Intake Total 1939 1845.2 Balance 1939 1845.2 - Physical Examination General/Neuro: alert & oriented x3, NAD Neck: no JVD present Lungs: CTA, unlabored respirations Heart: RRR Abdomen: NT/ND - Telemetry Telemetry Rhythm: SR, int AFib,60-80 - Labs Result Diagrams: 03/07/18 07:19 03/07/18 07:19 - Assessment/Plan 1. Afib and Aflutter with RVR-paroxysmal, initiated on sotalol 03/06 per EP, currently maintaining NSR, intermittent AFib. On digoxin. Unable to tolerate OACs, see below. 2. GI bleed 2/2 to duodenal ulcer - managed by GI, on IV pantoprazole 3. Anemia 2/2 to GI bleed - Hgb 7.9 today, S/P 2 units PCs 4. Dementia - Family at bedside
[2018-03-07] MEDS: Pantoprazole 80 MG, Admixture Fee 1 EACH in Sodium Chloride 0.9% 100 ML IVP SCH ×2 (13:12→21:21)
[2018-03-07] MEDS: Dextrose 5 % And 0.9 % NaCl 1,000 ML IV SCH (13:14)
--- NOTE | 2018-03-07 14:30 | PRG ---
DATE OF SERVICE: 03/07/2018. SUBJECTIVE: Ms. Manning still has passed a couple of liquidy red stools today. She has had no abdomi nal pain. She has been tolerating clear liquid diet. OBJECTIVE: VITAL SIGNS: Temperature 98.4, pulse 67, blood pressure 125/56. GENERAL: She is in no acute distress. She is awake and responsive. LUNGS: Clear to auscultation bilaterally. HEART: Regular rate and rhythm. ABDOMEN: Soft, nontender, nondistended. Bowel sounds are present. EXTREMITIES: Trace lower extremity edema. LABORATORY DATA: White blood cell count 10.1, hemoglobin 7.9, platelets 186, creatinine 0.63, albumi n was 2.4 couple of days ago. She received 2 units transfusion back on 03/04/2018 and 03/05/2018. IMPRESSION: 1. Anemia secondary to acute gastrointestinal blood loss. 2. Duodenal ulcer hemorrhage. This was cauterized by Dr. Ford on 03/04/2018. Followup endoscopy th e next day showed no active bleeding from the ulcer base. She has had still passage of red bloody st ool over the last couple of days; however, her hemoglobin has remained stable. RECOMMENDATIONS: 1. We will advance to a low residue diet or low fiber diet. 2. If her hemoglobin drops further, then transfuse a unit. Recheck hemoglobin in the morning. 3. H. pylori antibody was noted to be positive. I would wait until her acute bleed is resolved and this can be treated as an outpatient. I would not want to start treatment now and then have a partia l treatment with a gap in the medications. 4. Continue proton pump inhibitor drip. 5. Check coags. 6. At some point, if she continues bleeding, we might need to consider colonoscopy; however, she has an obvious source with a large ulcer in the duodenum.
[2018-03-08 05:57] LABS: #Eosinphils 0.3 thou/uL (0.0-0.7); #Lymphocytes 2.5 thou/uL (1.20-3.40); #Monocytes 1.1 thou/uL (0.11-0.59); #Neutrophils 7.6 thou/uL (1.40-6.50); %Basophils 0.3 % (0.0-1.0); %Eosinophils 2.4 % (0.0-10.0); %Lymphocytes 21.5 % (21.0-51.0); %Monocytes 9.7 % (0.0-10.0); Hemoglobin 8.3 g/dL (12.0-16.0); Mean Corpuscular HGB CONC 33.8 g/dL (32.0-36.0); Mean Corpuscular Hemoglobin 32.1 pg (27.0-31.0); Mean Corpuscular Volume 94.9 fl (81.0-99.0); Mean Platelet Volume 7.5 fL (7.4-10.4); Platelet Count 232 thou/uL (130-400); RBC Distribution Width 15.5 % (11.5-14.5); Red Blood Cell (RBC) Count 2.58 mill/uL (4.20-5.40); White Blood Cell (WBC) Count 11.4 thou/uL (4.8-10.8)
[2018-03-08 06:09] LABS: Anion Gap 6 mmol/L (10-20); BUN (Urea Nitrogen) 13 mg/dL (9.8-20.1); Calc. Creatinine Clearance 73 mL/min (70-130); Calcium 7.2 mg/dL (7.8-10.44); Carbon Dioxide 24 mmol/L (23-31); Chloride 109 mmol/L (98-107); Estimated GFR-MDRD Greater than 90; Glucose 112 mg/dL (83-110); Potassium 3.2 mmol/L (3.5-5.1); Sodium 136 mmol/L (136-145)
[2018-03-08] MEDS: Pantoprazole 80 MG, Admixture Fee 1 EACH in Sodium Chloride 0.9% 100 ML IVP SCH (07:42)
[2018-03-08] MEDS: Sotalol HCl 80 MG TAB PO SCH ×2 (07:43→20:22)
[2018-03-08] MEDS: Digoxin 0.125 MG TAB PO SCH (07:43)
--- NOTE | 2018-03-08 10:53 | PDOC.CTH ---
Cardiology Progress Note - Subjective Awake, denies chest pain/discomfort, shortness of breath. Primarily Irish- speaking, family at bedside assisting with translation. Feels good, better. Tolerating sotalol, rate regular today. No overnight events, no cardiac events. One small tarry, black stool this am. - Objective Vital Signs Temp Pulse Resp BP Pulse Ox 03/08/18 07:43 75 03/08/18 07:38 98.8 F 75 20 112/59 L 96 03/08/18 04:12 99.7 F H 75 20 123/72 96 Weight 165 lb 6.4 oz 03/07/18 03/08/18 03/09/18 06:59 06:59 06:59 Intake Total 1845.2 1394.3 Balance 1845.2 1394.3 - Physical Examination General/Neuro: alert & oriented x3 Neck: no JVD present Lungs: CTA, unlabored respirations Heart: RRR Abdomen: NT/ND - Telemetry Telemetry Rhythm: SB 50s-60s - Labs Result Diagrams: 03/08/18 05:07 03/08/18 05:07 - Assessment/Plan 1. Afib and Aflutter with RVR-paroxysmal, initiated on sotalol 03/06 per EP, currently maintaining NSR, intermittent AFib. On digoxin. Unable to tolerate OACs, see below. QTC stable. 2. GI bleed 2/2 to duodenal ulcer - managed by GI, on IV pantoprazole 3. Anemia 2/2 to GI bleed - Hgb 8.3, improved, stable. 4. Dementia - Family at bedside 5.Hypokalemia-K+ 3.2 today, replace
[2018-03-08] MEDS ORDERED: Potassium Chloride 20 MEQ TAB PO SCH (11:00)
--- NOTE | 2018-03-08 13:18 | PDOC.PN ---
- Subjective Encounter Start Date: 03/08/18 Encounter Start Time: 10:45 Subjective: no charlene bleeding per rectum -: awake and responds well to verbal stimuli -: has not amb yet, no palp or chest pain - Objective Resuscitation Status: Resuscitation Status FULL:Full Resuscitation MAR Reviewed: Yes Vital Signs & Weight: Vital Signs (12 hours) Temp Pulse Resp BP Pulse Ox 03/08/18 11:08 98.4 F 66 18 99/51 L 93 L 03/08/18 07:43 75 03/08/18 07:38 98.8 F 75 20 112/59 L 96 03/08/18 04:12 99.7 F H 75 20 123/72 96 Weight Weight 165 lb 6.4 oz I&O: 03/07/18 03/08/18 03/09/18 06:59 06:59 06:59 Intake Total 1845.2 1394.3 Balance 1845.2 1394.3 Result Diagrams: 03/08/18 05:07 03/08/18 05:07 Phys Exam - Physical Examination HEENT: PERRLA, moist MMs Neck: no JVD, supple Respiratory: no wheezing, no rales Cardiovascular: RRR, no significant murmur Gastrointestinal: soft, non-tender, positive bowel sounds Musculoskeletal: no edema, pulses present Neurological: non-focal, moves all 4 limbs Psychiatric: normal affect, A&O x 3 Dx/Plan (1) GI bleed Code(s): K92.2 - GASTROINTESTINAL HEMORRHAGE, UNSPECIFIED Status: Acute Qualifiers: GI bleed type/associated pathology: duodenal ulcer Qualified Code(s): K26.4 - Chronic or unspecified duodenal ulcer with hemorrhage (2) Duodenal ulcer Status: Acute (3) Acute blood loss anemia Code(s): D62 - ACUTE POSTHEMORRHAGIC ANEMIA Status: Acute (4) Afib Code(s): I48.91 - UNSPECIFIED ATRIAL FIBRILLATION Status: Acute Qualifiers: Atrial fibrillation type: paroxysmal Qualified Code(s): I48.0 - Paroxysmal atrial fibrillation (5) Dyslipidemia Code(s): E78.5 - HYPERLIPIDEMIA, UNSPECIFIED Status: Chronic (6) Dementia Code(s): F03.90 - UNSPECIFIED DEMENTIA WITHOUT BEHAVIORAL DISTURBANCE Status: Chronic Qualifiers: Dementia type: Alzheimer's disease Alzheimer's disease onset: unspecified onset Dementia behavioral disturbance: without behavioral disturbance Qualified Code(s): G30.9 - Alzheimer's disease, unspecified; F02.80 - Dementia in other diseases classified elsewhere without behavioral disturbance; F02.80 - Dementia in other diseases classified elsewhere without behavioral disturbance; F02.80 - Dementia in other diseases classified elsewhere without behavioral disturbance - Plan h/h is stable -: change protonix to oral bid -: is on sotalol 80mg bid, dig -: dc iv fluids, is on fiber restricted diet -: PT to mobilize as tolerated, dc plan in am * . Review of Systems - Medications/Allergies Allergies/Adverse Reactions: Allergies Allergy/AdvReac Type Severity Reaction Status Date / Time No Known Drug Allergies Allergy Verified 03/04/18 05:31 Medications: Current Medications Acetaminophen (Tylenol) 650 mg PO Q4H PRN PRN Reason: Headache/Fever or Pain Last Admin: 03/06/18 00:43 Dose: 650 mg Acetaminophen (Tylenol) 650 mg [place] Q4H PRN PRN Reason: Headache/Fever or Pain [facility]oxin (Lanoxin) [facility] [place] Last Admin: 03/08/18 07:43 Dose: 0.125 mg Pantoprazole Sodium (Protonix) 40 mg PO BID [facility] Sodium Chloride (Flush - Normal Saline) 10 ml IVF PRN PRN PRN Reason: Saline Flush Sotalol HCl (Betapace) 80 mg PO BID [facility] Last Admin: 03/08/18 07:43 Dose: 80 mg
--- NOTE | 2018-03-08 14:07 | PRG ---
DATE OF SERVICE: 03/08/2018 SUBJECTIVE: Ms. Manning had one small dark stool today. She has had no nausea or vomiting. Tolerati ng solid diet. OBJECTIVE: VITAL SIGNS: Temperature 98.4, pulse is 66, blood pressure is 99/51. GENERAL: She is in no acute distress, awake and alert. LUNGS: Clear to auscultation bilaterally. HEART: Regular rate and rhythm. ABDOMEN: Soft, nontender, nondistended. Bowel sounds are present. EXTREMITIES: No lower extremity edema. LABORATORY DATA: White blood cell count 11.4, hemoglobin 8.3, platelets 232, creatinine 0.62. H. py hammad antibody was positive. IMPRESSION: 1. Duodenal ulcer. 2. Anemia secondary to acute blood loss. Hemoglobin has been stable for a couple of days now and anastacio schneider is tolerating a solid diet. However, she has still continued to pass some old blood. 3. Helicobacter pylori antibody positive. RECOMMENDATIONS: 1. She should be able to exchange consultant to oral PPI at this point. I will switch her over to pantopraz ole 40 mg twice daily. 2. Defer treatment of the H. pylori as an outpatient. 3. Continue to monitor her hemoglobin since she has still been passing old blood.
[2018-03-08 16:50] LABS: Hemoglobin 8.2 g/dL (12.0-16.0)
[2018-03-09 05:30] LABS: #Eosinphils 0.4 thou/uL (0.0-0.7); #Lymphocytes 2.6 thou/uL (1.20-3.40); #Neutrophils 5.5 thou/uL (1.40-6.50); %Basophils 0.5 % (0.0-1.0); %Eosinophils 4.5 % (0.0-10.0); %Monocytes 10.5 % (0.0-10.0); %Neutrophils 57.5 % (42.0-75.0); Hemoglobin 8.5 g/dL (12.0-16.0); Mean Corpuscular HGB CONC 32.6 g/dL (32.0-36.0); Mean Corpuscular Hemoglobin 31.1 pg (27.0-31.0); Mean Corpuscular Volume 95.3 fl (81.0-99.0); Mean Platelet Volume 7.2 fL (7.4-10.4); Platelet Count 241 thou/uL (130-400); Red Blood Cell (RBC) Count 2.73 mill/uL (4.20-5.40); White Blood Cell (WBC) Count 9.6 thou/uL (4.8-10.8)
[2018-03-09 05:49] LABS: Anion Gap 8 mmol/L (10-20); BUN (Urea Nitrogen) 12 mg/dL (9.8-20.1); Calc. Creatinine Clearance 67 mL/min (70-130); Calcium 7.5 mg/dL (7.8-10.44); Carbon Dioxide 23 mmol/L (23-31); Chloride 110 mmol/L (98-107); Estimated GFR-MDRD 83; Glucose 101 mg/dL (83-110); Potassium 3.6 mmol/L (3.5-5.1); Sodium 137 mmol/L (136-145)
[2018-03-09] MEDS: Sotalol HCl 80 MG TAB PO SCH (08:28)
[2018-03-09] MEDS: Digoxin 0.125 MG TAB PO SCH (08:28)
--- NOTE | 2018-03-09 11:34 | PDOC.CTH ---
Cardiology Progress Note - Subjective The pt seen and examined. No overnight events. No cardiac complaints. Family at bedside. She complains of intermittent dizziness. Family stated it has been more than a few months. They did not notice that the pt has passed out or near syncopal episodes. - Objective Vital Signs Temp Pulse Resp BP Pulse Ox 03/09/18 11:16 97.3 F L 67 17 123/59 L 98 03/09/18 08:28 73 03/09/18 08:20 98.8 F 73 14 154/67 H 98 03/09/18 05:56 98.7 F 86 16 131/49 L 98 Weight 166 lb 11.2 oz 03/08/18 03/09/18 03/10/18 06:59 06:59 06:59 Intake Total 1394.3 840 Balance 1394.3 840 - Physical Examination General/Neuro: alert & oriented x3 Neck: no JVD present Lungs: CTA Heart: RRR Abdomen: soft Extremities: + femoral B - Telemetry Telemetry Rhythm: SR 70-80s - Labs Result Diagrams: 03/09/18 04:41 03/09/18 04:41 - Assessment/Plan 1. Afib and Aflutter with RVR - Remains in SR since 03/07/18. On Sotalol 80mg BID and Digoxin 0.125mg PO daily. Not on any OAC or Lovenox due to Hx of Acute GI bleed. 2. GI bleed 2ndary to duodenal ulcer - tolerates fiber restrict diet; on Protonix PO, BID; managed by GI 3. Anemia 2ndary to GI bleed - Hgb 8.5 from 8.3 on 03/08/18; s/p 2 units of PRBCs on 03/04/18. 4. Dementia - Family at bedside MAR reviewed * From Cardiac standpoint, the pt is stable to d/c. No OACs or ASA at this moment due to s/p acute GI bleed. The pt will f/u with Dr Sosa' office within 2 -4 wks. Review of Systems - Review of Systems Constitutional: reports: no symptoms reported EENTM: reports: no symptoms reported Respiratory: reports: no symptoms reported Cardiac (ROS): reports: no symptoms reported ABD/GI: reports: no symptoms reported : reports: no symptoms reported Musculoskeletal: reports: no symptoms reported
[2018-03-09 13:42] VITALS: TEMP 98.5
--- NOTE | 2018-03-09 14:03 | PRG ---
DATE OF SERVICE: 03/09/2018 SUBJECTIVE: The patient feels well without complaint. She is tolerating diet. No signs of overt bl eeding. PHYSICAL EXAMINATION: VITAL SIGNS: Temperature is 97.3, blood pressure 123/59, pulse 67. GENERAL: She is alert, in no distress. HEENT: Shows anicteric sclerae. CARDIOVASCULAR: Shows normal S1, S2 regular rate and rhythm. CHEST: Shows normal breath sounds. ABDOMEN: Soft, nontender, good bowel sounds. EXTREMITIES: Shows no edema. LABORATORY: H. pylori IgG antibody is positive. Electrolytes within normal range, creatinine 0.67. WBC is 9.6, hemoglobin 8.9 (stable), platelet count of 241. ASSESSMENT: 1. Status post acute upper gastrointestinal bleed from duodenal ulcer. 2. Anemia from acute gastrointestinal blood loss, stable hemoglobin over the last 3 days. 3. Positive H. pylori antibody. RECOMMENDATIONS: 1. The patient can be discharged to home on pantoprazole 40 mg oral b.i.d. 2. Follow up with me in 3 weeks, will proceed with outpatient H. pylori treatment at that time. 3. I have given the son my office number to schedule followup appointment.
--- NOTE | 2018-03-09 15:10 | PDOC.PN ---
- Subjective Encounter Start Date: 03/09/18 Encounter Start Time: 08:30 Subjective: no charlene bleeding -: no chest pain or palp -: tolerating oral diet, son and daughter at bedside - Objective Resuscitation Status: Resuscitation Status FULL:Full Resuscitation MAR Reviewed: Yes Vital Signs & Weight: Vital Signs (12 hours) Temp Pulse Resp BP Pulse Ox 03/09/18 13:39 98.5 F 73 138/65 98 03/09/18 11:16 97.3 F L 67 17 123/59 L 98 03/09/18 08:28 73 03/09/18 08:20 98.8 F 73 14 154/67 H 98 03/09/18 05:56 98.7 F 86 16 131/49 L 98 Weight Weight 166 lb 11.2 oz I&O: 03/08/18 03/09/18 03/10/18 06:59 06:59 06:59 Intake Total 1394.3 840 Balance 1394.3 840 Result Diagrams: 03/09/18 04:41 03/09/18 04:41 Phys Exam - Physical Examination HEENT: PERRLA, moist MMs Neck: no JVD, supple Respiratory: no wheezing, no rales Cardiovascular: RRR, no significant murmur Gastrointestinal: soft, non-tender, positive bowel sounds Musculoskeletal: no edema, pulses present Neurological: non-focal, moves all 4 limbs Dx/Plan (1) GI bleed Code(s): K92.2 - GASTROINTESTINAL HEMORRHAGE, UNSPECIFIED Status: Acute Qualifiers: GI bleed type/associated pathology: duodenal ulcer Qualified Code(s): K26.4 - Chronic or unspecified duodenal ulcer with hemorrhage (2) Duodenal ulcer Status: Acute (3) Acute blood loss anemia Code(s): D62 - ACUTE POSTHEMORRHAGIC ANEMIA Status: Acute (4) Afib Code(s): I48.91 - UNSPECIFIED ATRIAL FIBRILLATION Status: Acute Qualifiers: Atrial fibrillation type: paroxysmal Qualified Code(s): I48.0 - Paroxysmal atrial fibrillation (5) Dyslipidemia Code(s): E78.5 - HYPERLIPIDEMIA, UNSPECIFIED Status: Chronic (6) Dementia Code(s): F03.90 - UNSPECIFIED DEMENTIA WITHOUT BEHAVIORAL DISTURBANCE Status: Chronic Qualifiers: Dementia type: Alzheimer's disease Alzheimer's disease onset: unspecified onset Dementia behavioral disturbance: without behavioral disturbance Qualified Code(s): G30.9 - Alzheimer's disease, unspecified; F02.80 - Dementia in other diseases classified elsewhere without behavioral disturbance; F02.80 - Dementia in other diseases classified elsewhere without behavioral disturbance; F02.80 - Dementia in other diseases classified elsewhere without behavioral disturbance - Plan hemostable -: h/h holding up, no signs of repeat bleeding -: dc pt home, d/w son and daughter at bedside -: to f/u with in 2-3 weeks, plus Rx for H.Pylori as well * .
[2018-03-09 16:34] VITALS: BP 126/56
--- NOTE | 2018-03-10 05:11 | DIS ---
DATE OF ADMISSION: 03/04/2018 DATE OF DISCHARGE: 03/09/2018 DISCHARGE DISPOSITION: To home. PRIMARY DISCHARGE DIAGNOSES: Acute blood loss anemia with gastrointestinal bleed and duodenal ulcer, new onset atrial fibrillation which is paroxysmal, currently in sinus rhythm. SECONDARY DISCHARGE DIAGNOSES: Dyslipidemia, dementia. PROCEDURES DONE DURING HOSPITALIZATION: Patient has had upper endoscopy done by Dr. Ford on 03/04/2018, which revealed bleeding duodenal bulb ulcer with visible vessel, status post epinephrine injection and BICAP cauterization with good hemostasis. She had a repeat upper endoscopy done by Dr. Ashkan Wang for ongoing gastrointestinal blood loss, which confirmed the same findings. There was no active bleeding seen on the second endoscopy. Echo with 2D Doppler done showed an EF of 60-65%, mild aortic stenosis. H and H 8.5 and 26 on the day of discharge, platelet count of 241,000, MCV 97. Discharge BUN and creatinine is 12 and 0.6. Initial BUN and creatinine was 32 and 0.6. Albumin was 2.4. Serum iron 53, ferritin 200, H. pylori IgG antibody was positive at 3.53. INPATIENT CONSULTS: Dr. Ford/Ashkan Wang for Gastroenterology, Dr. Sosa for Cardiology. DISCHARGE PLAN: Patient is to follow up with Dr. Ford in 2-[address] Sosa in 3 weeks and primary care physician in 1 week. BRIEF COURSE DURING HOSPITALIZATION: Patient initially was taken to [facility] for complaints of abdominal pain and one large episode of hematemesis at home. Her initial hemoglobin was 10 grams, which dropped down to 7.5 grams. She has had consultation with fraud examiner, Dr. Ford and was taken for upper endoscopy. The patient was found to have had bleeding duodenal ulcer with visible vessel which was cauterized. She has had serial H and H done. The patient received a total of 3 units of packed cells during her stay. She was initially admitted to IMCU and later downgraded to telemetry. The patient also developed new onset atrial fibrillation which is essentially rate controlled initially on Cardizem and later oral sotalol and digoxin. She has maintained her sinus rhythm for the last 48 hours now. Her serial H and H for the last 48 hours has remained stable. No active rectal bleeding is seen, but she still has some dark black stained stools likely from prior bleeding. She is hemodynamically stable and has been cleared by specialists for discharge today. Please see a face to face documentation on [facility] for the day of discharge. DISCHARGE MEDICATIONS: Digoxin 0.125 mg p.o. daily, ferrous sulfate 325 mg p.o. twice daily, multivitamin 1 tab once daily, Protonix 40 mg p.o. twice daily , sotalol 80 mg p.o. twice daily. ALLERGIES: No known drug allergies. MTDD
--- NOTE | 2018-03-11 20:10 | EKG ---
Test Reason : Blood Pressure : / mmHG Vent. Rate : 069 BPM Atrial Rate : 069 BPM P-R Int : 206 ms QRS Dur : 078 ms QT Int : 392 ms P-R-T Axes : 064 022 054 degrees QTc Int : 420 ms Sinus rhythm with Premature atrial complexes Otherwise normal ECG When compared with ECG of 08-MAR-2018 10:55, (Unconfirmed) Premature atrial complexes are now Present Sinus rhythm is no longer with ventricular escape complexes Confirmed by COBY WALLACE (2) on 03/11/2018 8:10:45 PM Referred By: OLGA Confirmed By:COBY WALLACE
== END 2018-03-09 14:27 | disposition home or self-care (01) | DRG 378 ==
LOC: ERS 00:24 → IMCU/EMU 04:00 → 2NO 03-06 15:49
PROVIDERS: ADMIT Internal Medicine; ATTEND Internal Medicine
PROC: 30233N1 Transfusion of Nonautologous Red Blood Cells into Peripheral Vein, Percutaneous Approach (ICD-10-PCS; principal; 2018-03-04)
PROC: 0W3P8ZZ Control Bleeding in Gastrointestinal Tract, Via Natural or Artificial Opening Endoscopic (ICD-10-PCS; 2018-03-04)
PROC: 0DJ08ZZ Inspection of Upper Intestinal Tract, Via Natural or Artificial Opening Endoscopic (ICD-10-PCS; 2018-03-05)
DX: K26.0 Acute duodenal ulcer with hemorrhage (principal); D62 Acute posthemorrhagic anemia; I48.92 Unspecified atrial flutter; I48.0 Paroxysmal atrial fibrillation; K25.9 Gastric ulcer, unspecified as acute or chronic, without hemorrhage or perforation; B96.81 Helicobacter pylori [H. pylori] as the cause of diseases classified elsewhere; K44.9 Diaphragmatic hernia without obstruction or gangrene; E87.6 Hypokalemia; R73.9 Hyperglycemia, unspecified; M19.90 Unspecified osteoarthritis, unspecified site; F03.90 Unspecified dementia, unspecified severity, without behavioral disturbance, psychotic disturbance, mood disturbance, and anxiety; Z79.1 Long term (current) use of non-steroidal anti-inflammatories (NSAID)
CPT/HCPCS: 36415; 36430; 74018; 80048; 80053; 82271; 82728; 83540; 83550; 83735; 84100; 85014; 85018; 85025; 85046; 85049; 86677; 86850; 86900; 86901; 93005; 93010; 93306; 96361; 96374; C9113; G8978-GP-CK; G8979-GP-CK; G8980-GP-CK; G8987-GO-CK; G8988-GO-CK; G8989-GO-CK; J2001; J2060; J2704; J7050; P9016